=== PATIENT | female | born 1990 | race Caucasian/White ===

== ENCOUNTER 2016-06-19 14:06 | Emergency (ER) | payer MEDICAID ==
[2016-06-19 14:22] VITALS: BP 144/110
--- NOTE | 2016-06-19 15:58 | EDM.PDOC ---
ED HPI DIZZINESS - General Chief Complaint: STAVE HEWER Problem Stated Complaint: DIZZINESS Time Seen by Provider: 06/19/16 14:26 Source of Information: Reports: Patient, RN notes reviewed Exam Limitations: Reports: No limitations - History of Present Illness INITIAL COMMENTS - FREE TEXT/NARRATIVE: The patient states that she felt dizzy and nearly passed out while standing at work last night. 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 The patient also states that she has been sexually active man for the past 5 months, but briefly broke up and was then told by a third green party that the man gave her a sexually transmitted disease that "you can't get rid of". The patient denies having any vaginal discomfort or discharge. She denies having any urinary symptoms. She does report light pink on the toilet paper about 2 weeks ago. - Related Data Allergies/ADRs: Allergies Allergy/AdvReac Type Severity Reaction Status Date / Time No Known Allergies Allergy Verified 06/19/16 14:22 Home Meds: Home Meds . [No Known Home Meds] 11/17/13 [History] Past Medical History Psychiatric History: Reports: Depression Endocrine/Metabolic History: Reports: Obesity/BMI 30+ - Infectious Disease History Infectious Disease History: Reports: Hepatitis C Social & Family History - Tobacco Use Smoking Status *Q: Current Every Day Smoker Years of Tobacco use: 7 Packs/Tins Daily: 0.5 Second Hand Smoke Exposure: Yes - Caffeine Use Caffeine Use: Reports: Soda - Alcohol Use Alcohol Use History: No - Recreational Drug Use Recreational Drug Use: Yes Drug Use in Last 12 Months: Yes Recreational Drug Type: Reports: Marijuana/Hashish Recreational Drug Use Frequency: Daily - Living Situation & Occupation Living situation: Reports: single, with family (Daughter) Occupation: employed ([employer] [place]) ED ROS GENERAL - Review of Systems Review Of Systems: See Below Constitutional: Reports: no symptoms HEENT: Reports: No symptoms Respiratory: Reports: No Symptoms Cardiovascular: Reports: No symptoms Endocrine: Reports: no symptoms GI/Abdominal: Reports: No symptoms : Reports: no symptoms Musculoskeletal: Reports: no symptoms Skin: Reports: no symptoms Neurological: Reports: No Symptoms Psychiatric: Reports: No symptoms Hematologic/Lymphatic: Reports: no symptoms Immunologic: Reports: no symptoms ED EXAM, DIZZINESS - Physical Exam Exam: See Below Exam Limited By: No limitations General Appearance: alert, WD/WN, no apparent distress Eye Exam: bilateral eye: EOMI, normal inspection Ears: normal external exam, normal canal, hearing grossly normal, normal TMs Nose: normal inspection, normal mucosa, no blood Throat/Mouth: Normal inspection, Normal lips, Normal teeth, Normal gums, Normal oropharynx, Normal voice, No airway compromise Head Exam: atraumatic, normocephalic Neck: normal inspection, full range of motion Respiratory/Chest: no respiratory distress, lungs clear, normal breath sounds, no accessory muscle use Cardiovascular: normal peripheral pulses, regular rate, rhythm, no gallop, no JVD, no murmur, no rub GI/Abdominal: normal bowel sounds, soft, non tender, no organomegaly, no distention, no abnormal bruit, no mass, other (Obese) Neurological: alert, normal dorsiflexion, CN II-XII intact, normal plantar flexion, normal gait, no motor/sensory deficits, oriented x 3 Back Exam: normal inspection, full range of motion, NT Extremities: normal inspection, normal range of motion, no pedal edema, normal capillary refill Psychiatric: normal affect Skin Exam: Warm, Dry, Intact, Normal color, No rash EKG INTERPRETATION EKG Date: 06/19/16 Time: 15:07 Rhythm: NSR Rate (beats/min): 85 [place]: normal P-wave: present QRS: normal ST-T: normal QT: normal Comparison: NA - no prior EKG Course - Vital Signs Last Recorded V/S: Last Vital Signs Temp 36.8 C 06/19/16 14:19 Pulse 96 06/19/16 14:19 Resp 16 06/19/16 14:19 BP 144/110 H 06/19/16 14:19 Pulse Ox 99 06/19/16 14:19 Orthostatic Blood Pressure [ 132/94 Standing] Orthostatic Blood Pressure [ 137/91 Sitting] Orthostatic Blood Pressure [ 145/84 Supine] - Orders/Labs/Meds Orders: Active Orders 24 hr Category Date Time Status EKG Documentation Completion [RC] STAT Care 06/19/16 14:59 Active Orthostatic Vital Signs [RC] STAT Care 06/19/16 14:57 Active Labs: Laboratory Tests 06/19/16 06/19/16 06/19/16 Range/Units 15:14 15:14 15:14 WBC 9.44 (3.98-10.04) K/mm3 RBC 4.43 (3.98-5.22) M/mm3 Hgb 13.6 (11.2-15.7) gm/L Hct 40.6 (34.1-44.9) % MCV 91.6 (79.4-94.8) fl MCH 30.7 (25.6-32.2) pg MCHC 33.5 (32.2-35.5) g/dl RDW Std Deviation 40.9 (36.4-46.3) fL Plt Count 316 (182-369) K/mm3 MPV 9.7 (9.4-12.3) fl Neutrophils % (Manual) 69 H (40-60) % Band Neutrophils % 0 (0-10) % Lymphocytes % (Manual) 21 (20-40) % Atypical Lymphs % 0 % Monocytes % (Manual) 9 (2-10) % Eosinophils % (Manual) 1 (0.7-5.8) % Basophils % (Manual) 0 L (0.1-1.2) Platelet Estimate Adequate Plt Morphology Comment Normal RBC Morph Comment Normal PT (8.0-13.0) SECONDS INR APTT (22-36) SECONDS D-Dimer, Quantitative 0.46 (0.19-0.59) mg/L Sodium 139 (136-145) mEq/L Potassium 4.0 (3.5-5.1) mEq/L Chloride 103 (98-107) mEq/L Carbon Dioxide 26 (21-32) mEq/L Anion Gap 14.0 (5-15) BUN 14 (7-18) mg/dL Creatinine 1.0 (0.55-1.02) mg/dL Est Cr Clr Drug Dosing 74.91 mL/min Estimated GFR (MDRD) > 60 (>60) mL/min BUN/Creatinine Ratio 14.0 (14-18) Glucose 98 (74-106) mg/dL Calcium 9.4 (8.5-10.1) mg/dL Total Bilirubin 0.2 (0.2-1.0) mg/dL AST 13 L (15-37) U/L ALT 28 (14-59) U/L Alkaline Phosphatase 88 (46-116) U/L Total Protein 8.3 H (6.4-8.2) g/dl Albumin 4.0 (3.4-5.0) g/dl Globulin 4.3 gm/dL Albumin/Globulin Ratio 0.9 L (1-2) 06/19/16 Range/Units 15:14 WBC (3.98-10.04) K/mm3 RBC (3.98-5.22) M/mm3 Hgb (11.2-15.7) gm/L Hct (34.1-44.9) % MCV (79.4-94.8) fl MCH (25.6-32.2) pg MCHC (32.2-35.5) g/dl RDW Std Deviation (36.4-46.3) fL Plt Count (182-369) K/mm3 MPV (9.4-12.3) fl Neutrophils % (Manual) (40-60) % Band Neutrophils % (0-10) % Lymphocytes % (Manual) (20-40) % Atypical Lymphs % % Monocytes % (Manual) (2-10) % Eosinophils % (Manual) (0.7-5.8) % Basophils % (Manual) (0.1-1.2) Platelet Estimate Plt Morphology Comment RBC Morph Comment PT 10.6 (8.0-13.0) SECONDS INR 0.97 APTT 25 (22-36) SECONDS D-Dimer, Quantitative (0.19-0.59) mg/L Sodium (136-145) mEq/L Potassium (3.5-5.1) mEq/L Chloride (98-107) mEq/L Carbon Dioxide (21-32) mEq/L Anion Gap (5-15) BUN (7-18) mg/dL Creatinine (0.55-1.02) mg/dL Est Cr Clr Drug Dosing mL/min Estimated GFR (MDRD) (>60) mL/min BUN/Creatinine Ratio (14-18) Glucose (74-106) mg/dL Calcium (8.5-10.1) mg/dL Total Bilirubin (0.2-1.0) mg/dL AST (15-37) U/L ALT (14-59) U/L Alkaline Phosphatase (46-116) U/L Total Protein (6.4-8.2) g/dl Albumin (3.4-5.0) g/dl Globulin gm/dL Albumin/Globulin Ratio (1-2) - Re-Assessments/Exams Free Text/Narrative Re-Assessment/Exam: 06/19/16 15:12 The patient is not orthostatic. 06/19/16 16:17 Test results discussed with the patient. Today's workup is unremarkable and does not explain the cause of the patient's near syncopal episode last night, however, I suspect, based on her history, that she suffered from venous pooling after standing for 30 minutes. I explained that this mechanism to her, and recommended that if she needs to stand for prolonged period of time, that she keep her legs moving. Additionally, I recommended that if she has another episode, while not standing, that some other etiology is more likely to blame. I will refer her to the clinic for followup. Departure - Departure Time of Disposition: 16:18 Disposition: Home, Self-Care 01 Condition: good Clinical Impression: Near syncope Instructions: Near-Syncope, [id number] Referrals: PCP,None [Primary Care Provider] - America Rojas PA-C [Physician Chemistry Associate] - Forms: ED Department Discharge Additional Instructions: You were seen in the emergency room today after nearly passing out at work last night. Workup in the ER included a blood work, an ECG, and positional blood pressure checks. Your entire workup was unremarkable, and does not explain the cause of your dizziness, however, based on your history, it is MOST LIKELY that your dizziness was caused by blood pooling in your legs and not getting to your heart. We recommended that if you need to stand for a prolonged period of time, that you keep your leg muscles moving. We recommend you followup with America Rojas in the clinic. If any other problems, please do not hesitate to return to the ER. - My Orders Last 24 Hours: My Active Orders 06/19/16 14:57 Orthostatic Vital Signs [RC] STAT 06/19/16 14:59 EKG Documentation Completion [RC] STAT - Assessment/Plan Last 24 Hours: My Active Orders 06/19/16 14:57 Orthostatic Vital Signs [RC] STAT 06/19/16 14:59 EKG Documentation Completion [RC] STAT
== END 2016-06-19 16:30 | disposition home or self-care (01) ==
LOC: JD.ED 14:06
DX: R55 Syncope and collapse (principal); F17.210 Nicotine dependence, cigarettes, uncomplicated
CPT/HCPCS: 36415; 80053; 85025; 85379; 85610; 85730; 93005; 99284

== ENCOUNTER 2017-11-18 09:16 | Emergency (ER) | payer SELFPAY ==
[2017-11-18 09:37] VITALS: BP 161/108
--- NOTE | 2017-11-18 09:38 | EDM.PDOC ---
ED HPI GENERAL MEDICAL PROBLEM - General Chief Complaint: ENT Problem Stated Complaint: L SIDE TOOTH PAIN Time Seen by Provider: 11/18/17 09:38 Source of Information: Reports: Patient History Limitations: Reports: No Limitations - History of Present Illness INITIAL COMMENTS - FREE TEXT/NARRATIVE: 27-year-old female attends the ED with severe dental pain left upper molar tooth. She's had decayed and in bad shape for about a beer but it's never become problematic in the past. Over the last 3 days has been gradually increasing pain in the left ousmane-face rating towards her left ear. Pain became very severe over the last 24 hours to the point that she hardly slept at all last night. She's been applying close as well as topical anesthetic. Been taking large quantities of Motrin and Aleve for pain relief overnight. Onset: Gradual Onset Date: 11/15/17 Duration: Day(s):, Constant, Getting Worse Location: Reports: Face (Left dental pain left upper molar tooth.) Quality: Reports: Ache, Pressure, Throbbing, Other Severity: Severe (Constant throbbing pounding pain) Improves with: Reports: None Worsens with: Reports: None Context: Denies: Activity, Exercise, Lifting, Sick Contact, Trauma, Other Associated Symptoms: Reports: Malaise. 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 Left Upper Gums Pain Score (Numeric/FACES): 10 - Related Data Allergies Allergy/AdvReac Type Severity Reaction Status Date / Time No Known Allergies Allergy Verified 11/18/17 09:46 Home Meds: Home Meds Amoxicillin/Clavulanate K [Augmentin 875-125 MG] 1 tab PO BID #20 tab 10/15/17 [ Rx] Chlorhexidine Gluconate 0.12% [Peridex 0.12% Rinse] 15 ml MM BID #1 bottle 10/15 [Rx] Naproxen 500 mg PO BID PRN #20 tablet 10/15/17 [Rx] Amoxicillin/Clavulanate K [Augmentin 500-125 MG] 1 tab PO Q12H #20 tablet [Rx] oxyCODONE HCl/Acetaminophen [Percocet 5-325 mg Tablet] 1 - 2 each PO Q4H PRN # 16 tablet 11/18/17 [Rx] Past Medical History - Past Health History Medical/Surgical History: Denies Medical/Surgical History Psychiatric History: Reports: Depression Endocrine/Metabolic History: Reports: Obesity/BMI 30+ Other Endocrine/Metabolic History: hep c positive - Infectious Disease History Infectious Disease History: Reports: Hepatitis C Social & Family History - Family History Family Medical History: Noncontributory - Caffeine Use Caffeine Use: Reports: None - Living Situation & Occupation Living situation: Reports: Single, with Family Occupation: Employed ED ROS ENT - Review of Systems Review Of Systems: See Below Constitutional: Reports: Malaise, Weakness, Fatigue, Decreased Appetite (From not sleeping). Denies: Fever, Chills, Weight Loss HEENT: Reports: Dental Pain, Ear Pain (Left upper molar tooth. Radiating to her left ear) Respiratory: Reports: No Symptoms ( ear pain) Cardiovascular: Reports: No Symptoms Endocrine: Reports: No Symptoms GI/Abdominal: Reports: No Symptoms : Reports: No Symptoms Musculoskeletal: Reports: No Symptoms Skin: Reports: No Symptoms Neurological: Reports: No Symptoms Psychiatric: Reports: No Symptoms Hematologic/Lymphatic: Reports: No Symptoms Immunologic: Reports: No Symptoms ED EXAM, ENT - Physical Exam Exam: See Below Exam Limited By: No Limitations General Appearance: Alert, Moderate Distress (Appears very tired and in obvious pain.) Ears: Normal TMs Mouth/Throat: Dental Pain (She has a badly decayed left upper third molar tooth which is the source for pain. There is surrounding gingiva swelling without abscess), Dental Tenderness (. after upper third molar tooth. ) Head: Atraumatic, Normocephalic Neck: Normal Inspection, Supple, Non-Tender, Full Range of Motion. No: Lymphadenopathy (L), Lymphadenopathy (R) Respiratory/Chest: No Respiratory Distress, Lungs Clear, Normal Breath Sounds, No Accessory Muscle Use Cardiovascular: Normal Peripheral Pulses, Regular Rate, Rhythm, No Edema, No Gallop, No Murmur Course - Vital Signs Last Recorded V/S: Last Vital Signs Temp 36.6 C 11/18/17 09:30 Pulse 76 11/18/17 09:30 Resp 14 11/18/17 09:30 BP 161/108 H 11/18/17 09:30 Pulse Ox 94 L 11/18/17 09:30 - Radiology Interpretation Free Text/Narrative:: 27-year-old female presents to the ED with dental pain left upper third molar tooth. It is badly decayed and is obviously source of infection very tender to touch with the tongue blade. No surrounding swelling of her face. Pain is referred to her left ear which was normal on exam. Plan Augmentin 500 mg twice daily for the next 10 days. Percocet 5/325 mg tabs one every 1-2 tabs by mouth every 4-6 hours needed for pain relief in addition to Aleve or Motrin for anti- inflammatory relief. She has plans to follow-up with the dentist next week tentatively have the tooth extracted. Departure - Departure Time of Disposition: :43 Disposition: Home, Self-Care 01 Condition: Fair Clinical Impression: Dental abscess - Discharge Information *PRESCRIPTION DRUG MONITORING PROGRAM REVIEWED*: No *COPY OF PRESCRIPTION DRUG MONITORING REPORT IN PATIENT COLTON: No Prescriptions: Amoxicillin/Clavulanate K [Augmentin 500-125 MG] 1 tab PO Q12H #20 tablet oxyCODONE HCl/Acetaminophen [Percocet 5-325 mg Tablet] 1 - 2 each PO Q4H PRN # 16 tablet PRN Reason: pain relief. Instructions: Dental Abscess Referrals: PCP,None [Primary Care Provider] - Forms: ED Department Discharge Additional Instructions: Evaluation the emergency room this morning in regards to severe dental pain coming from a decayed upper left third molar tooth. There is significant swelling of the gingiva around the tooth without evidence of an abscess that would benefit from draining at this time. Anus referred to the left ousmane-face and ear. Ear exam is normal. Treatment is antibiotic Augmentin 500 mg twice daily for the next 10 days to clear up infection around the root of the tooth. Continue Motrin 600 mg every 6 hours or Aleve 2 tablets every 8 hours for pain and inflammation relief as well. Percocet 5/325 mg tablets one or 2 every 4-6 hours needed for pain relief. Just next week when able to have the tooth extracted or root canal done.
== END 2017-11-18 10:01 | disposition home or self-care (01) ==
LOC: JD.ED 09:16
DX: K04.7 Periapical abscess without sinus (principal); E66.9 Obesity, unspecified
CPT/HCPCS: 99283